=== PATIENT | male | born 1955 | race Caucasian/White ===

== ENCOUNTER 2024-07-04 09:01 | Day surgery (SDC) | payer MEDICARE ==
[~2024-07-04] VITALS: Ht 175.3 cm; Wt 84.5 kg
[2024-07-04] VITALS (7 sets, daily range): BP systolic 107–150; BP diastolic 60–91; PULSE 53–62; RESP 12–16; TEMP 98.3; O2SAT 94–97
[2024-07-04 09:57] LABS: BASOPHILS # (AUTO) 0.1 X10'3 (0-0.2); BASOPHILS % (AUTO) 0.8 % (0-1); EOSINOPHILS # (AUTO) 0.1 X10'3 (0-0.9); EOSINOPHILS % (AUTO) 1.1 % (0-6); HEMATOCRIT 47.1 % (42.0-52.0); HEMOGLOBIN 15.8 g/dl (14.0-17.9); LYMPHOCYTES # (AUTO) 2.3 X10'3 (1.1-4.8); LYMPHOCYTES % (AUTO) 25.5 % (21-51); MEAN CORPUSCULAR HEMOGLOBIN 30.2 PG (27.0-31.0); MEAN CORPUSCULAR HGB CONC 33.6 g/dL (33.0-36.5); MEAN CORPUSCULAR VOLUME 89.8 FL (78-98); MEAN PLATELET VOLUME 7.6 FL (7.4-10.4); MONOCYTES # (AUTO) 1.1 X10'3 (0-0.9); MONOCYTES % (AUTO) 11.9 % (2-12); NEUTROPHILS # (AUTO) 5.5 X10'3 (1.8-7.7); NEUTROPHILS % (AUTO) 60.7 % (42-75); PLATELET COUNT 263 X10'3 (140-440); RED BLOOD COUNT 5.24 X10'6 (4.70-6.10); RED CELL DISTRIBUTION WIDTH 13.3 % (11.5-14.5)
[2024-07-04] MEDS ORDERED: CELE-127 PO (10:00)
[2024-07-04] MEDS ORDERED: TRAZ-251 PO (10:00)
[2024-07-04] MEDS ORDERED: HYDR12.55 PO (10:00)
[2024-07-04] MEDS ORDERED: IRBE150T34 PO (10:00)
[2024-07-04] MEDS ORDERED: NITR0.3T10 (10:00)
[2024-07-04] MEDS ORDERED: ATOR-2 PO (10:00)
[2024-07-04] MEDS ORDERED: ESCI-8 PO (10:00)
[2024-07-04] MEDS ORDERED: EZET10TA48 PO (10:00)
[2024-07-04] MEDS ORDERED: ASPI-611 PO (10:00)
[2024-07-04 10:21] LABS: ALBUMIN 3.5 G/DL (3.4-5.0); ANION GAP 8 (8-16); BLOOD UREA NITROGEN 15 MG/DL (7-18); BUN/CREATININE RATIO 14.4 (10.0-20.0); CHLORIDE 101 MMOL/L (99-107); CREATININE 1.04 MG/DL (0.60-1.10); MAGNESIUM 2.1 MG/DL (1.5-2.4); POTASSIUM 3.9 MMOL/L (3.5-5.1); SODIUM 138 MMOL/L (135-145); eGFR 71 ML/MIN
[2024-07-04 10:22] LABS: INR 1.1 INR; PROTHROMBIN TIME 11.1 SECONDS (9.0-12.0)
[2024-07-04 10:26] LABS: GLUCOSE 93 MG/DL (70-104)
[2024-07-04] MEDS ORDERED: clindamycin-Cleocin 900mg/D5W 50 ML IV ONE (10:35)
[2024-07-04] MEDS ORDERED: CLINDAmcin 900mg/NS 50ml IVPB 50 ML IV ONE (10:35)
[2024-07-04] MEDS ORDERED: ceFAZolin 2gm in dextrose, iso 50 ML IV ONE (10:35)
[2024-07-04] MEDS ORDERED: LIDOcaine 1% W/epiNEPHrine 1:100,000 20ml vial ONE (13:15)
[2024-07-04] MEDS ORDERED: fentaNYL/PF 50MCG/1 ML 2ML syringe ONE (13:15)
[2024-07-04] MEDS ORDERED: midazolam 1 mg/ML 2ml injection ONE ×3 (13:16→15:11)
[2024-07-04] MEDS ORDERED: vancomycin 1,000mg inj ONE (13:16)
[2024-07-04] MEDS ORDERED: iohexol 350 MG/ML 50ML vial IV ONE (14:40)
== END 2024-07-04 17:25 | disposition home or self-care (01) ==
LOC: SSTAY O 09:01
PROVIDERS: ATTEND Internal Medicine Cardiovascular Disease
DX: I44.1 Atrioventricular block, second degree (principal); I44.2 Atrioventricular block, complete; I45.10 Unspecified right bundle-branch block; R94.31 Abnormal electrocardiogram [ECG] [EKG]; I25.2 Old myocardial infarction; I25.10 Atherosclerotic heart disease of native coronary artery without angina pectoris; I10 Essential (primary) hypertension; E78.5 Hyperlipidemia, unspecified
CPT/HCPCS: 33208; 36415; 71045; 80048; 83735; 85025; 85610; 93005; 99152; 99153; C1785; J2250; J3010; J3370; J3490; J7030; Q9967; Z7610